=== PATIENT | female | born 1985 | race African-American/Black ===

== ENCOUNTER 2017-12-17 22:09 | Emergency (ER) | payer MEDICAID ==
[~2017-12-17] VITALS: Ht 157.5 cm; Wt 49.4 kg
[2017-12-17 22:27] VITALS: BP 117/78
== END 2017-12-18 03:08 | disposition home or self-care (01) ==
LOC: ER 22:09
DX: M62.838 Other muscle spasm (principal); M54.2 Cervicalgia; Z90.710 Acquired absence of both cervix and uterus; V49.49XA Driver injured in collision with other motor vehicles in traffic accident, initial encounter; Y93.89 Activity, other specified; Y99.8 Other external cause status; Y92.488 Other paved roadways as the place of occurrence of the external cause
CPT/HCPCS: 70450; 72125; 73000; 73030